=== PATIENT | female | born 1965 | race Hispanic/Latino ===

== ENCOUNTER 2021-08-16 12:48 | Emergency (ER) | payer MEDICAID, OTHER ==
[~2021-08-16] VITALS: Ht 152.4 cm; Wt 65.8 kg
[~2021-08-16 12:48] MED LIST: LEVOTHYROXINE PO; METFORMIN HCL1000 MG PO
[2021-08-16] MEDS ORDERED: CASIRIVIMAB/IMDEVIMAB 10 ML in SODIUM CHLORIDE 0.9% 100 ML IV ONE (13:15)
[2021-08-16 14:02] VITALS: BP 137/60
== END 2021-08-16 14:07 | disposition home or self-care (01) ==
LOC: ER 13:05
DX: U07.1 COVID-19 (principal); I10 Essential (primary) hypertension; E11.9 Type 2 diabetes mellitus without complications
CPT/HCPCS: 99283; J7050

== ENCOUNTER → 2024-05-17 | Day surgery (SDC) | payer BC, OTHER ==
[~2024-05-17] MED LIST changes: +BENICAR5 MG PO; +BIOTIN1 MG PO; +CYCLOBENZAPRINE5 MG PO; +FARXIGA10 MG PO; +HYOSCYAMINE SULFATE 0.5 MG/ML INJ ONE; +IBUPROFEN600 MG PO; +LIDOCAINE HCL 2% LOCAL INJ 5 ML SDV VIAL INJ ONE; +LOSARTAN POTASS25 MG PO; +MAGNESIUM100 MG PO; +METFORMIN HCL500 MG PO; +MONTELUKAST SOD10 MG PO; +OMEPRAZOLE40 MG PO; +PROPOFOL IV EMULSION 10 MG/ML 50 ML VIAL IV ONE; +PROPOFOL IV EMULSION 50 ML IV ONE; +TYLENOL325 MG PO
[2024-05-17] MEDS: LACTATED RINGER'S 1,000 ML ONE (07:47)
[2024-05-17 08:46] VITALS: TEMP 97.4
[2024-05-17 09:15] VITALS: BP 120/80; PULSE 72; RESP 16; O2SAT 100
== END | disposition home or self-care (01) ==
LOC: OR 06:50
PROVIDERS: ATTEND Internal Medicine Gastroenterology
DX: Z12.11 Encounter for screening for malignant neoplasm of colon (principal); D12.8 Benign neoplasm of rectum; K57.30 Diverticulosis of large intestine without perforation or abscess without bleeding; K64.8 Other hemorrhoids; K21.9 Gastro-esophageal reflux disease without esophagitis; I10 Essential (primary) hypertension; E11.9 Type 2 diabetes mellitus without complications; M19.90 Unspecified osteoarthritis, unspecified site; J30.2 Other seasonal allergic rhinitis; Z01.810 Encounter for preprocedural cardiovascular examination; Z79.1 Long term (current) use of non-steroidal anti-inflammatories (NSAID); Z79.84 Long term (current) use of oral hypoglycemic drugs; Z79.899 Other long term (current) drug therapy
CPT/HCPCS: 36415; 45385; 82948; 93005; J1980; J2001; J2704; J7121; 45378